=== PATIENT | male | born 1955 ===

== ENCOUNTER 2017-12-23 07:44 | Emergency (ER) | payer BC ==
[2017-12-23 07:47] VITALS: BP 129/85; PULSE 85; RESP 16; TEMP 97.8; O2SAT 98; BMI 29.8
[2017-12-23] MEDS ORDERED: Sodium Chloride 0.9% 1,000 ML IV STA (08:18)
--- NOTE | 2017-12-23 08:33 | ED PDOC ---
HPI: General Adult Time Seen by Provider: 12/23/17 08:02 Chief Complaint (Nursing): Lower Extremity Problem/Injury Chief Complaint (Provider): Gout History Per: Patient History/Exam Limitations: no limitations Onset/Duration Of Symptoms: Days Current Symptoms Are (Timing): Still Present Additional Complaint(s): 62 year old male presents to the emergency department with a complaint of bilateral ankle and wrist pain due to gout exacerbation that started Sunday night, 12/18/2017. Reports he went to see his primary care doctor the next day on Sunday who prescribed him indomethacin to take 3 times a day although medications has not helped and worsens his pain. States he needed to get blood work done on , 12/20/2017, but could not because he could not walk due to the pain. Associated with no bowel movements for 5 days. Denies fever. Past Medical History Reviewed: Historical Data, Nursing Documentation, Vital Signs Vital Signs: Last Vital Signs Temp 97.8 F 12/23/17 07:46 Pulse 85 12/23/17 07:46 Resp 16 12/23/17 07:46 BP 129/85 12/23/17 07:46 Pulse Ox 98 12/23/17 10:44 - Medical History PMH: HTN - Surgical History Surgical History: No Surg Hx - Family History Family History: States: No Known Family Hx - Social History Current smoker - smoking cessation education provided: Yes Alcohol: Other Drugs: Other - Allergies Allergies/Adverse Reactions: Allergies Allergy/AdvReac Type Severity Reaction Status Date / Time No Known Allergies Allergy Verified 12/23/17 08:09 Review of Systems ROS Statement: Except As Marked, All Systems Reviewed And Found Negative (As per HPI, otherwise negative) Constitutional: Positive for: Other (gout). Negative for: Fever Gastrointestinal: Positive for: Constipation Musculoskeletal: Positive for: Hand Pain (wrist pain bilaterally), Foot Pain ( Ankle pain bilaterally) Physical Exam - Reviewed Nursing Documentation Reviewed: Yes Vital Signs Reviewed: Yes - Physical Exam Appears: Positive for: No Acute Distress Head Exam: Positive for: NORMAL INSPECTION Skin: Positive for: Normal Color, Warm, Dry Extremity: Positive for: Tenderness (Mild tenderness to ankles and knees bilaterally. No induration, redness, or effusion to those regions. ), Other ( Mild erythema of the base of the second toe of the left foot. Erythema on the first MTP joints on both feet. Uric acid deposits of tophi noted to the second digit of the left foot. ). Negative for: Pedal Edema Neurologic/Psych: Positive for: Alert, Oriented (x3) - Laboratory Results Result Diagrams: 12/23/17 08:30 12/23/17 08:30 - ECG O2 Sat by Pulse Oximetry: 98 (RA) Pulse Ox Interpretation: Normal Medical Decision Making Medical Decision Making: Time: 815 Initial Impression: Gout Initial Plan: --BMP --Uric Acid --Urine DIP --CBC w/ diff --Erythrocyte Sedimentation --Toradol 30 mg IV --Sodium Chloride 1L IV --Reevaluation Time: 937 --Magnesium Hydroxide 30 mL PO Time: 950 --Phosphate Enema 135 mL MI Scribe Attestation: Documented by Debbi Knapp, acting as a scribe for Mariely Burnett MD. Provider Scribe Attestation: All medical record entries made by the Scribe were at my direction and personally dictated by me. I have reviewed the chart and agree that the record accurately reflects my personal performance of the history, physical exam, medical decision making, and the department course for this patient. I have also personally directed, reviewed, and agree with the discharge instructions and disposition. Patient is feeling better after bowel movements and NSAIDs given here. Disposition - Clinical Impression Clinical Impression: Gout flare, Constipation - Patient ED Disposition Is Patient to be Admitted: No Doctor Will See Patient In The: Office Counseled Patient/Family Regarding: Diagnosis, Need For Followup - Disposition Referrals: Markie Irene MD [Family Provider] - Disposition: Routine/Home Disposition Time: 10:52 Condition: IMPROVED Additional Instructions: Stop furosemide and Uloric Continue with Allopurinol, Indomethacin Please ask your personal doctor about the diuretic that attached to the blood pressure medicine, Lisinopril. Instructions: Gout (ED), High Fiber Diet (ED) Forms: [facility] ([place]) - POA Present On Arrival: None
[2017-12-23 09:05] LABS: BASO % 0.1 % (0.0-2.0); EOS % 0.3 % (0.0-4.0); HEMOGLOBIN 12.8 g/dL (12.0-18.0); LYMPH # 0.7 K/uL (1.0-4.3); LYMPH % 5.3 % (20.0-40.0); MEAN CELL VOLUME 94.6 fl (80.0-94.0); MEAN CORPUSCULAR HEMOGLOBIN 31.2 pg (27.0-31.0); MEAN PLATELET VOLUME 8.9 fl (7.2-11.7); MONO # 0.9 K/uL (0.0-0.8); MONO % 6.9 % (0.0-10.0); NEUT # 11.7 K/uL (1.8-7.0); NEUT % 87.4 % (50.0-75.0); PLATELET COUNT 283 K/uL (130-400); RBC 4.09 Mil/uL (4.40-5.90); WHITE BLOOD COUNT 13.4 K/uL (4.8-10.8)
[2017-12-23 09:20] LABS: BLOOD UREA NITROGEN 25 mg/dl (9-20); CALCIUM 9.4 mg/dL (8.4-10.2); GFR AFRICAN-AMERICAN > 60; GFR NON-AFRICAN AMERICAN > 60; URIC ACID 5.1 mg/Dl (3.5-8.5)
[2017-12-23] MEDS ORDERED: Magnesium Hydroxide Susp 30 ml UD PO STA (09:38)
[2017-12-23 09:44] LABS: LYMPHOCYTE 5 % (20-50); MONOCYTE 7 % (0-10); NEUTROPHIL 88 % (42-75); TOTAL CELLS COUNTED 100
[2017-12-23 09:45] LABS: PLATELET ESTIMATE NORMAL (NORMAL)
== END 2017-12-23 11:47 | disposition home or self-care (01) ==
LOC: H.ER 07:44
DX: M10.9 Gout, unspecified (principal); K59.00 Constipation, unspecified; I10 Essential (primary) hypertension
CPT/HCPCS: 80048; 84550; 85025; 85651; 96374; 99284; J1885; J7040